=== PATIENT | female | born 1995 | race Caucasian/White ===

== ENCOUNTER 2017-03-03 18:02 | Emergency (ER) | payer BC ==
[~2017-03-03] VITALS: Ht 170.2 cm; Wt 71.3 kg
[2017-03-03 18:33] LABS: HEMATOCRIT 44.1 % (36.0-46.0); MCH 29.2 PG (29.0-34.0); MCHC 33.6 G/DL (30.0-36.0); MCV 87.2 FL (83-99); MEAN PLAT.VOLUME 10.1 uM^3 (9.5-12.4); PLATELET COUNT 316 K/uL (156-360); RBC DIS.WIDTH-CV 12.2 % (11.8-14.6); RED BLOOD COUNT 5.06 M/uL (3.80-5.20); WHITE BLOOD COUNT 12.7 K/uL (4.1-10.2)
[2017-03-03 18:45] LABS: CHLORIDE 104 mEq/L (99-109); POTASSIUM 4.2 mEq/L (3.7-5.4); SODIUM 140 mEq/L (136-147)
[2017-03-03 18:48] LABS: GLUCOSE 103 mg/dL (70-99)
[2017-03-03 18:49] LABS: ANION GAP 9 MEQ/L (2-14)
[2017-03-03 18:50] LABS: TOTAL BILIRUBIN 0.7 mg/dL (0.0-1.0)
[2017-03-03 18:51] LABS: ALKALINE PHOSPHATASE 86 IU/L (3-129)
[2017-03-03 18:52] LABS: UREA NITROGEN (BUN) 14 mg/dL (9-23)
[2017-03-03 18:55] LABS: GFR ESTIMATE (CALCULATED) 56 mL/min/
[2017-03-03 19:03] LABS: QUANTITATIVE HCG < 4.0 MIU/ML
[2017-03-03 19:38] LABS: LIPASE 4 U/L (1.0-51.0)
[2017-03-03] MEDS ORDERED: CYCLOBENZAPRINE10 MG PO (19:55)
[2017-03-03] MEDS ORDERED: ONDANSETRON ODT4 MG PO (19:55)
[2017-03-03 19:58] LABS: ADD MIUA? YES; BILIRUBIN NEGATIVE; BLOOD NEGATIVE; COLOR YELLOW ((YELLOW)); GLUCOSE (STRIP) 150; KETONES NEGATIVE; LEUKOCYTES TRACE; NITRITE NEGATIVE; PROTEIN (STRIP) NEGATIVE; SPECIFIC GRAVITY 1.011 (1.000-1.030); UROBILINOGEN 0.2 MG/DL (0.2-1.0)
[2017-03-03 20:01] LABS: BACTERIA RARE /HPF; EPITHELIAL CELLS RARE /HPF; MUCUS TRACE /LPF; RED BLOOD CELLS 0-5 /HPF (0-5); UCUL ADDED? NO; WHITE BLOOD CELLS 0-5 /HPF (0-5)
[2017-03-03] MEDS ORDERED: ZOFRAN ODT4 MG PO (21:20)
[2017-03-03] MEDS ORDERED: FLOMAX0.4 MG PO (21:20)
[2017-03-03] MEDS ORDERED: NORCO 7.5/321 TABLET PO (21:20)
[2017-03-03] MEDS ORDERED: MOTRIN800 MG PO (21:20)
[2017-03-03 21:50] VITALS: BP 122/70
== END 2017-03-03 21:51 | disposition home or self-care (01) ==
LOC: EME 18:02
DX: N20.1 Calculus of ureter (principal)
CPT/HCPCS: 74176; 80053; 81003; 83690; 84702; 85027; J1885; J2405; J7030